=== PATIENT | female | born 1970 | race Two or more races ===

== ENCOUNTER 2024-08-16 08:05 | Day surgery (SDC) | payer MEDICAID, SELFPAY ==
[2024-08-16] VITALS (11 sets, daily range): BP systolic 92–132; BP diastolic 45–80; PULSE 60–72; RESP 10–20; TEMP 37–37.2; O2SAT 97–100; BMI 28.8
[2024-08-16] MEDS: DiphenhydrAMINE INJ 50 MG/ML VIAL 25 MG IV (09:06)
[2024-08-16] MEDS: LIDOCAINE JELLY 2% (Urojet) 10 ML TUBE TOP (09:13)
[2024-08-16] MEDS: MIDAZOLAM INJ 1 MG/ML VIAL 2 ML (ASD USE ONLY) 2 MG IV (09:17)
[2024-08-16] MEDS: fentaNYL CIT INJ 50 mCg/ML AMP 2ML (ASD USE ONLY) IV (09:17)
--- NOTE | 2024-08-16 10:55 | SUR.PHASEII ---
pt arrived to PACU AT 0930, pt drifts in and out of her sleep. vs within normal limits on RA. when pt wakes up she ask about the findings, Dr. Jasmine spoke to pt in recovery about the findings and the new prescription for omeprazole and how he would like the pt to take the omeprazole for 12 weeks and repeat EGD in 8 weeks. pt made aware. pt awakens and has been constantly telling this keno writer/runner that pt can just walk home. pt educated she needs to rest today and is not allowed to leave without her ride. throughout her pacu stay pt kept repeating she could walk home. pt sitting in wheelchair waiting for daughter to arrive for d/c. when giving d/c instructions pt and daughter were made aware of post op instructions including avoiding taking the ambien for 24 hours. pt continues to say she can walk home. pt daughter educated she cannot be walking around without anyone monitoring her due to her drowsiness and forgetfulness caused by the sedation medication. pt fully awake eating jello and drinking a soda during d/c and agreed she would not leave the house walking when she got home. and would hold her ambien. pt educated if she would to take the ambien there is a chance she may stop breathing, pt stated that would end my current problems. pt again reorientated and educated on the importance of not taking ambien for 24 hrs, pt and daughter then verbalized understanding. when taking pt to car she stated its a beautiful day and i can just walk home . this nurse reeducated the pt and daughter on safety and both agreed she will not walk when she gets home or try to walk home after the daughter leaves the parking lot. daughter seen driving out of the parking lot with pt and stated she would be watching her mom today.
== END 2024-08-16 10:43 | disposition home or self-care (01) ==
PROVIDERS: PCP Internal Medicine; Referring Provider Internal Medicine Gastroenterology; Visit Provider Internal Medicine Gastroenterology
PROC: 0DBE8ZX Excision of Large Intestine, Via Natural or Artificial Opening Endoscopic, Diagnostic (ICD-10-PCS; CPT 45380; principal; 2024-08-16 08:30)
PROC: (CPT 43239; 2024-08-16 08:30)
DX: K64.9 Unspecified hemorrhoids (principal); K21.00 Gastro-esophageal reflux disease with esophagitis, without bleeding; K44.9 Diaphragmatic hernia without obstruction or gangrene; K29.70 Gastritis, unspecified, without bleeding; K31.89 Other diseases of stomach and duodenum; K29.50 Unspecified chronic gastritis without bleeding
CPT/HCPCS: 45380; 43239; A4649; J1200; J2250; J3010

== ENCOUNTER → 2024-08-28 | Outpatient (CLI) | payer MEDICAID, SELFPAY ==
--- NOTE | 2024-08-28 11:45 | XR_ITS ---
Examination: Screening digital mammography, bilateral Computer aided detection 3-D breast Tomosynthesis, bilateral Date and time of exam: August 28, 2024 11:30 AM INDICATIONS: Left breast pain several years Compared to mammograms dating to November 28, 2015 Indication: Screening Technique: Nonmagnified MLO, CC views of the breasts to been obtained, reconstructed from 3-D Tomosynthesis images. R2 computer aided detection program utilized for evaluation of suspicious masses and/or abnormal calcifications. 3-D Tomosynthesis images obtained. Findings: Scattered areas of fibroglandular density. Benign calcifications. No interval suspicious masses Impression: BI-RADS category II: Benign Findings. Recommend 1 year follow-up mammogram. Given the patient's history of breast pain, recommend bilateral breast sonography follow-up
== END | disposition home or self-care (01) ==
PROVIDERS: PCP Internal Medicine; Referring Provider Internal Medicine; Visit Provider Internal Medicine
DX: Z12.31 Encounter for screening mammogram for malignant neoplasm of breast (principal); R92.323 Mammographic fibroglandular density, bilateral breasts; R92.1 Mammographic calcification found on diagnostic imaging of breast
CPT/HCPCS: 77063; 77067

== ENCOUNTER → 2024-08-31 | Outpatient (CLI) | payer MEDICAID, SELFPAY ==
--- NOTE | 2024-08-31 11:15 | XR_ITS ---
Examination: Abdomen sonogram, complete Date and time of exam: August 31, 2024 1133 hours INDICATIONS: Intermittent right upper abdominal pain beginning 16 minutes ago. Technique: Multiple real-time grayscale transabdominal sonographic images of the abdomen have been obtained. Findings: Normal gallbladder Normal common bile duct 0.3 cm Pancreas obscured by bowel gas Mid and distal aorta visualized not enlarged Fatty liver 12.4 cm no liver lesions Normal hepatopedal portal venous oh Patent IVC Right kidney 10.8 x 4.5 x 5.7 cm cortex 1.6 cm Left kidney 11.7 x 5.0 x 5.3 cm in the cortex 1.7 cm Mild renal parenchymal scar formation No hydronephrosis Spleen 8 cm IMPRESSION: Multiple gallbladder Fatty liver Mild bilateral renal parenchymal scar formation
== END | disposition home or self-care (01) ==
PROVIDERS: PCP Internal Medicine; Referring Provider Nurse Practitioner Family; Visit Provider Nurse Practitioner Family
DX: K76.0 Fatty (change of) liver, not elsewhere classified (principal); N28.89 Other specified disorders of kidney and ureter
CPT/HCPCS: 76700

== ENCOUNTER → 2024-09-21 | Outpatient (CLI) | payer MEDICAID, SELFPAY ==
--- NOTE | 2024-09-21 13:35 | XR_ITS ---
Examination: Lumbar spine, 5 views Technique: Lumbar spine AP, lateral, coned lateral lower lumbar spine, bilateral obliques 5 views Exam date and time: September 21, 2024 1349 hours Comparison October 12, 2023 INDICATIONS: Low back pain beginning one year ago. FINDINGS: Moderate osteopenia Moderate diffuse facet arthropathy No lumbar fracture Mild lumbar spondylosis Mild degenerative disc disease L4-L5, L5-S1 No spondylolisthesis IMPRESSION: Mild degenerative disc disease L4-L5, L5-S1
--- NOTE | 2024-09-21 13:35 | XR_ITS ---
Examination: Thoracic spine 3 views Technique one AP lateral coned lateral upper dorsal spine 3 views Exam date and time: September 21, 2024 1355 hours INDICATIONS: Mid back pain beginning one year ago. FINDINGS: Moderate osteopenia No thoracic fracture Minimal thoracic spondylosis Minimal thoracic degenerative disc disease IMPRESSION: Minimal thoracic degenerative disc disease
== END | disposition home or self-care (01) ==
LOC: CDIM 13:21
PROVIDERS: PCP Internal Medicine; Referring Provider Internal Medicine; Visit Provider Internal Medicine
DX: M51.369 Other intervertebral disc degeneration, lumbar region without mention of lumbar back pain or lower extremity pain (principal); M51.379 Other intervertebral disc degeneration, lumbosacral region without mention of lumbar back pain or lower extremity pain
CPT/HCPCS: 72072; 72110

== ENCOUNTER → 2024-11-23 | Outpatient (CLI) | payer MEDICAID, SELFPAY ==
--- NOTE | 2024-11-23 15:00 | XR_ITS ---
Examination: Breast ultrasound complete, bilateral Date and time of exam: November 23, 2024, 1521 hrs. Indications: Palpable lumps and pain in both breasts noticed beginning 3 weeks ago Technique: Real-time grayscale ultrasonographic imaging bilateral breasts, including all 4 quadrants as well as nipple retroareolar and axillary regions. Findings: Sonographic images right and left breast demonstrated no cystic or solid masses Dilated breast ducts retroareolar Impression: BI-RADS Category 2: Benign findings
== END | disposition home or self-care (01) ==
PROVIDERS: PCP Internal Medicine; Referring Provider Internal Medicine; Visit Provider Internal Medicine
DX: R92.8 Other abnormal and inconclusive findings on diagnostic imaging of breast (principal)
CPT/HCPCS: 76641

== ENCOUNTER → 2024-12-27 | Outpatient (CLI) | payer MEDICAID, SELFPAY ==
--- NOTE | 2024-12-27 10:30 | XR_ITS ---
Examination: CT abdomen with intravenous contrast. Coronal 2-D reconstructions. Sagittal 2-D reconstructions. Date and time of exam:December 27, 2024 1023 hours INDICATIONS: Right upper abdominal pain and nausea beginning 2 years ago, history 2 mm lower pole left renal calculus on CT study February 29, 2024 CTDI: vol (mGy): 7.50 DLP: (mGycm): 273 Technique: Axial images of the abdomen have been obtained, 3 mm slice thickness, 60 cc [id number] 2-D sagittal coronal reconstructions Low dose protocols were performed. One or more of the following dose reduction techniques were used; automated exposure control, adjustment of the mA and/or KV according to patient size, use of iterative reconstruction technique. Findings: No focal liver or splenic lesions No gallstones No pancreatic or adrenal mass 1 mm lower pole nonobstructing left renal calculus Aorta normal size No bowel obstruction 15 mm fat-containing umbilical hernia IMPRESSION: 1. Millimeter lower pole nonobstructing left renal calculus No hydronephrosis or ureteral calculi noted
== END | disposition home or self-care (01) ==
PROVIDERS: Referring Provider Internal Medicine; Visit Provider Internal Medicine
DX: N20.0 Calculus of kidney (principal)
CPT/HCPCS: 74160; A4649; Q9967

== ENCOUNTER 2025-01-08 13:02 | Outpatient (AMB) | payer MEDICAID, SELFPAY ==
[2025-01-08 13:50] VITALS: BP 113/66; PULSE 62; RESP 18; TEMP 36.8; O2SAT 98; BMI 30.6
--- NOTE | 2025-01-08 13:50 | ORTHONT_ITS ---
Vital signs 01/08/25 13:50 Height 1.63 m Height Method Stated Weight 80.966 kg Weight Measurement Method Standing Scale BMI 30.6 BP 113/66 Blood Pressure Source Automatic Cuff Blood Pressure Location Right Upper Arm Position Sitting Respiration 18 Pulse 62 Pulse Source Monitor Temp 98.2 F Temp Source Temporal Artery Scan Pulse Oximetry (%) 98 Oxygen Delivery Method Room Air Med/Allergies Allergies & Medications Allergies UNKNOWN ANTIBIOTIC Allergy (Uncoded 01/08/25 13:51) Medication Reconciliation pregabalin 25 mg capsule (Lyrica) 75 mg PO BID 08/16/24 [History Confirmed 01/08/25] Held on 08/16/24. Instructions: Resume on 08/17/24. zolpidem 10 mg tablet 10 mg PO QDAY 08/16/24 [History Confirmed 01/08/25] Held on 08/16/24. Instructions: Resume on 08/17/24. Exam Exam Patient is in no acute distress and is cooperative with the examination today. Breathing is nonlabored. In no respiratory distress. Patient has no paraspinal tenderness. Spinal deformity cannot be appreciated. The gait of the patient is nonantalgic Bilateral extremities were evaluated and demonstrates sensation intact to light touch. Palpable pedal pulses are present. No significant edema is present. Bilateral knees were examined and the patient has full strength and range of motion.. The left hip was examined. Patient was able to flex to 90 degrees, adduct to 30 degrees, abduct to 40 degrees, internally rotate to 20 degrees, and externally rotate to 20 degrees. Patient has a negative logroll. Stinchfield is negative. The patient is nontender diffusely to touch. The right hip was examined. Patient was able to flex to 90 degrees, adduct to 30 degrees, abduct to 40 degrees, internally rotate to 20 degrees, and externally rotate to 20 degrees. Patient has a negative logroll. The stinchfield is negative. X-rays demonstrate no arthritis at all in the right hip. Joint spaces are preserved. On the left there is a FNS in in good alignment position. There is no arthritis Assessment and Plan Problem List (1) Lumbar radiculopathy: Status: Acute Plan: Patient is a 54-year-old female with back pain that radiates down the entire right leg. On x-ray she has no evidence of arthritis and she has preserved logroll and negative Stinchfield. I discussed with her the pain is likely from low back in origin is likely lumbar radiculopathy. We recommend anti- inflammatories and nonoperative treatment for this. Should this persist, she should see a cardiac specialist. Office Procedures GNS Level of Care Nursing/Assessment Patient Status: Established Patient Nursing Assessment/Reassesment: Medication Reconciliation, Update PMH in EMR and Vital Signs Coordination of Care: Complex Care and Chronic Disease 1-5, Education Complex Pt/Fam, Consent,records obtained, informed consent, Lab and Imaging orders, Results/Orders obtained and Staff clarify orders Special Needs: Language special needs Established Patient Charge Established Patient Point Assignment: 110 Established Patient Point Charge: EP Level 3 (80-115) MA Intake Visit Data Collection New Patient or Established: Established Patient (seen at [facility] within 3 years) Reason for Visit:: RIGHT HIP PAIN Seen by Clinical Staff ONLY (RN/MA): No Verbal consent obtained for Telemed visit?: No Director Of Quality Improvement Required: Yes PCP or OBGYN visit in last 3 months: Yes Hx Now: No Do You Feel Safe at Home: Yes Authorities Contacted: N/A Questionairres Past Medical History Past Medical History Have you ever been diagnosed with any of the following: Neurological Problems Seizures: No Cardiology Problems Hypercholesterolemia: Yes Congestive Heart Failure: No Deep Vein Thrombosis: Yes (lower extremeties) Respiratory Problems Chronic Obstructive Pulmonary Disease (COPD): No Stomache/Intestinal Problems Hemorrhoids: Yes (rectal bleeding) Gastroesophageal Reflux Disease: Yes Genital/Urinary Problems Renal Disease: No Reproductive Problems Endometriosis: No Pelvic Inflammatory Disease: No Previous Pregnancies: Yes Musculoskeletal Problems Arthritis: Yes Endocrine Problems Diabetes Mellitus Type 1: No Diabetes Mellitus Type 2: No Other Problems Hospitalization: Yes Down Syndrome: No Developmental Delay: No Falls: Yes Blood Transfusions: No Blood Transfusion Reaction: No Anesthesia Reactions: No MRSA: No Chicken Pox: Yes Measles: Yes Mumps: Yes Clostridium Difficile: No Cancer: No Subjective Visit Visit for: new patient and hip Immunization / Flu Flu Vaccine in the Last 12 Months: Yes Flu Vaccine Exclusion Criteria: Already Received History of Present Illness Chief complaint: RIGHT HIP PAIN Date of injury / onset of symptoms: 10 YEARS Date of 1st surgery (if applicable): LEFT HIP SX BY DR VIRK Patient is a 54 yo female with back pain that radiates down both leg. She has not any pain at all. She has no pain problems putting on socks and shoes. There is numbness and tingling associated with this Personal History Red flag PMH: BMI BMI Counceling provided: Yes Pain Pain level (0-10): 8 Pain duration: ALL DAY Pain location: groin and outside (lateral) Pain quality: sharp and burning Associated signs & symptoms: numbness and none (STRUGGLES TO PUT ON SHOES ) Ambulatory data Ambulatory device: none Treatments Improvement with previous injections: No Improvement with PT: No Improvement with NSAIDS: yes (TYLENOL, ADVIL ) Review of Systems Review of Systems: All systems negative unless otherwise noted in HPI.
== END 2025-01-08 14:02 | disposition home or self-care (01) ==
LOC: HODSRG 13:02
PROVIDERS: PCP Internal Medicine; Referring Provider Internal Medicine; Supervising Provider Orthopaedic Surgery Adult Reconstructive Orthopaedic Surgery; Visit Provider Orthopaedic Surgery Adult Reconstructive Orthopaedic Surgery
DX: M54.16 Radiculopathy, lumbar region (principal); E78.00 Pure hypercholesterolemia, unspecified; Z86.718 Personal history of other venous thrombosis and embolism; K21.9 Gastro-esophageal reflux disease without esophagitis
CPT/HCPCS: 99213; G0463

== ENCOUNTER → 2025-01-28 | Outpatient (CLI) | payer MEDICAID, SELFPAY ==
--- NOTE | 2025-01-28 15:32 | XR_ITS ---
Examination:Left hip AP, lateral, AP pelvis 3 views Technique: Hip AP lateral, AP pelvis, 3 views Exam date and time:05/31/2025 1538 hours INDICATIONS: Status post hip surgery 3 years ago with persistent left hip pain FINDINGS: Orthopedic hardware left hip satisfactory position No acute fracture No avascular necrosis [id number] bilateral hip osteoarthritis IMPRESSION: [id number] bilateral hip osteoarthritis.
== END | disposition home or self-care (01) ==
PROVIDERS: PCP Internal Medicine; Referring Provider Internal Medicine; Visit Provider Internal Medicine
DX: M16.0 Bilateral primary osteoarthritis of hip (principal)
CPT/HCPCS: 73502

== ENCOUNTER → 2025-04-23 | Outpatient (CLI) | payer MEDICAID, SELFPAY ==
--- NOTE | 2025-04-23 15:47 | XR_ITS ---
Examination: MRI lumbar spine without contrast Date and time of exam: April 23, 2025 1618 hours Comparison April 18, 2024 INDICATIONS: Low back pain 2 years post injury, femur fracture radiating to the right leg Technique: Multiple MRI axial and sagittal sections lumbar spine. Sagittal T2-weighted images, TR 3500, TE 118 T1 weighted transverse sections, TR 688 T8.5, T2-weighted sagittal sections T1 weighted sagittal sections TR 621, TE 30 T2 axial sections, TR 4, 190, TE 84. Findings: Satisfactory alignment lumbar vertebral bodies. No lumbar fracture. Diffuse lumbar disc desiccation. No significant lumbar disc narrowing. No spondylolisthesis. L5-S1 4 mm central lumbar disc bulge which extends to both foraminal regions producing mild bilateral L5 ganglionic compression L4-L5 2 mm central lumbar disc bulge More cephalad levels unremarkable IMPRESSION: L5-S1 4 mm central lumbar disc bulge extending to both foraminal regions producing mild bilateral L5 ganglionic compression
== END | disposition home or self-care (01) ==
LOC: SMRI 15:20
PROVIDERS: PCP Internal Medicine; Referring Provider Internal Medicine; Visit Provider Internal Medicine
DX: M51.370 Other intervertebral disc degeneration, lumbosacral region with discogenic back pain only (principal); G95.20 Unspecified cord compression
CPT/HCPCS: 72148

== ENCOUNTER → 2025-06-13 | Outpatient (CLI) | payer MEDICAID, SELFPAY ==
--- NOTE | 2025-06-13 | XR_ITS ---
Examination: Knee bilateral, 8 views Technique: Knee AP, lateral, oblique, axial H knee total 4 views Date and time of exam: June 13, 2025, 10:50 PM INDICATIONS: Knee pain 3 weeks. FINDINGS: Moderate osteopenia Bilateral mild narrowing medial joint spaces No fractures No patellar dislocation IMPRESSION: Bilateral mild narrowing medial joint spaces
== END | disposition home or self-care (01) ==
PROVIDERS: PCP Internal Medicine
DX: M25.862 Other specified joint disorders, left knee (principal); M25.861 Other specified joint disorders, right knee
CPT/HCPCS: 73564

== ENCOUNTER → 2025-07-03 | Outpatient (CLI) | payer MEDICAID, SELFPAY ==
--- NOTE | 2025-07-03 17:01 | XR_ITS ---
EXAMINATION: PA lateral chest 2 views TECHNIQUE: Upright PA lateral chest 2 views Date and time: July 03, 2025, 1709 hours, comparison February 10, 2023 INDICATIONS: Chest pain beginning 2 weeks ago. FINDINGS: Minor prominence left ventricle No pneumonia or pulmonary edema. Moderate osteopenia IMPRESSION: No active disease
== END | disposition home or self-care (01) ==
PROVIDERS: PCP Internal Medicine
DX: R07.89 Other chest pain (principal)
CPT/HCPCS: 71046

== ENCOUNTER 2025-08-15 14:09 | Outpatient (AMB) | payer MEDICAID, SELFPAY ==
--- NOTE | 2025-08-15 14:57 | PD.ORTHCLVIS ---
Vital signs 08/15/25 15:13 Height 1.63 m Height Method Measured Weight 82.582 kg Weight Measurement Method Standing Scale BMI 31.1 BP 118/74 Blood Pressure Source Automatic Cuff Blood Pressure Location Left Upper Arm Position Sitting Respiration 18 Pulse 67 Pulse Source Monitor Temp 97.8 F Temp Source Temporal Artery Scan Pulse Oximetry (%) 97 Oxygen Delivery Method Room Air Med/Allergies Allergies & Medications Allergies UNKNOWN ANTIBIOTIC Allergy (Uncoded 08/15/25 15:15) Medication Reconciliation pregabalin 25 mg capsule (Lyrica) 75 mg PO BID 08/16/24 [History Confirmed 08/15/25] Held on 08/16/24. Instructions: Resume on 08/17/24. zolpidem 10 mg tablet 10 mg PO QDAY 08/16/24 [History Confirmed 08/15/25] Held on 08/16/24. Instructions: Resume on 08/17/24. Exam Exam Patient is in no acute distress and is cooperative with the examination today. Breathing is nonlabored. In no respiratory distress. Patient has no paraspinal tenderness. Spinal deformity cannot be appreciated. The gait of the patient is nonantalgic Bilateral extremities were evaluated and demonstrates sensation intact to light touch. Palpable pedal pulses are present. No significant edema is present. Bilateral knees were examined and the patient has full strength and range of motion.. The left hip was examined. Patient was able to flex to 90 degrees, adduct to 30 degrees, abduct to 40 degrees, internally rotate to 20 degrees, and externally rotate to 20 degrees. Patient has a negative logroll. Stinchfield is negative. The patient is nontender diffusely to touch. The right hip was examined. Patient was able to flex to 90 degrees, adduct to 30 degrees, abduct to 40 degrees, internally rotate to 20 degrees, and externally rotate to 20 degrees. Patient has a negative logroll. The stinchfield is negative. X-rays demonstrate no arthritis at all in the right hip. Joint spaces are preserved. On the left there is a FNS in in good alignment position. There is no arthritis Assessment and Plan Problem List (1) Lumbar radiculopathy: Status: Acute Plan: Patient is a 54-year-old female with back pain that radiates down the entire right leg. We will get x-rays of the left knee and we will start with bilateral knee injections. She will need authorization for this. Plan We will see her back after x-rays and bilateral knee injections Office Procedures GNS Level of Care Nursing/Assessment Patient Status: Established Patient Nursing Assessment/Reassesment: Medication Reconciliation, Update PMH in EMR and Vital Signs Coordination of Care: Complex Care and Chronic Disease 1-5, Education Complex Pt/Fam, Consent,records obtained, informed consent, Results/Orders obtained and Staff clarify orders Special Needs: Language special needs Established Patient Charge Established Patient Point Assignment: 95 Established Patient Point Charge: EP Level 3 (80-115) MA Intake Visit Data Collection New Patient or Established: Established Patient (seen at [facility] within 3 years) Reason for Visit:: F/U HIP PAIN Seen by Clinical Staff ONLY (RN/MA): No Blasting Worker Required: Yes PCP or OBGYN visit in last 3 months: Yes Hx Now: No Do You Feel Safe at Home: Yes Authorities Contacted: N/A Questionairres Past Medical History Past Medical History Have you ever been diagnosed with any of the following: Neurological Problems Seizures: No Cardiology Problems Hypercholesterolemia: Yes Congestive Heart Failure: No Deep Vein Thrombosis: Yes (lower extremeties) Respiratory Problems Chronic Obstructive Pulmonary Disease (COPD): No Stomache/Intestinal Problems Hemorrhoids: Yes (rectal bleeding) Gastroesophageal Reflux Disease: Yes Genital/Urinary Problems Renal Disease: No Reproductive Problems Endometriosis: No Pelvic Inflammatory Disease: No Previous Pregnancies: Yes Musculoskeletal Problems Arthritis: Yes Endocrine Problems Diabetes Mellitus Type 1: No Diabetes Mellitus Type 2: No Other Problems Hospitalization: Yes Down Syndrome: No Developmental Delay: No Falls: Yes Blood Transfusions: No Blood Transfusion Reaction: No Anesthesia Reactions: No MRSA: No Chicken Pox: Yes Measles: Yes Mumps: Yes Clostridium Difficile: No Cancer: No Subjective Visit Visit for: new patient and hip Immunization / Flu Flu Vaccine in the Last 12 Months: Yes Flu Vaccine Exclusion Criteria: Already Received History of Present Illness Chief complaint: RIGHT HIP PAIN Date of injury / onset of symptoms: 10 YEARS Date of 1st surgery (if applicable): LEFT HIP SX BY DR VIRK Patient is a 54 yo female with back pain that radiates down both leg. She has not any pain at all. She has no pain problems putting on socks and shoes. There is numbness and tingling associated with this. She reports that her hip pain is significantly better. She reports pain in her knees recently. Personal History Red flag PMH: BMI BMI Counceling provided: Yes Pain Pain level (0-10): 8 Pain duration: ALL DAY Pain location: groin and outside (lateral) Pain quality: sharp and burning Associated signs & symptoms: numbness and none (STRUGGLES TO PUT ON SHOES ) Ambulatory data Ambulatory device: none Treatments Improvement with previous injections: No Improvement with PT: No Improvement with NSAIDS: yes (TYLENOL, ADVIL ) Review of Systems Review of Systems: All systems negative unless otherwise noted in HPI.
--- NOTE | 2025-08-15 14:58 | XR_ITS ---
EXAMINATION: Bilateral AP knees standing single view Left knee PA lateral axial 3 views TECHNIQUE: Bilateral AP knees standing single view Upright PA flexion standing knee, upright lateral left knee, axial left knee 3 views total 4 views Date and time: August 15, 2025, 1515 hours INDICATIONS: Left knee pain 3 years. FINDINGS: Moderate osteopenia. Moderate narrowing medial lateral joint spaces Mild osteoarthritis left patellofemoral joint No fracture or patellar dislocation IMPRESSION: Moderate narrowing medial lateral joint spaces
[2025-08-15 15:13] VITALS: BP 118/74; PULSE 67; RESP 18; TEMP 36.6; O2SAT 97; BMI 31.1
== END 2025-08-15 15:02 | disposition home or self-care (01) ==
LOC: HODSRG 14:09
PROVIDERS: PCP Internal Medicine; Referring Provider Internal Medicine; Supervising Provider Orthopaedic Surgery Adult Reconstructive Orthopaedic Surgery; Visit Provider Orthopaedic Surgery Adult Reconstructive Orthopaedic Surgery
DX: M54.16 Radiculopathy, lumbar region (principal); M25.862 Other specified joint disorders, left knee
CPT/HCPCS: 73564; 99213; G0463